=== PATIENT | female | born 1950 | race Caucasian/White ===

== ENCOUNTER 2017-09-13 08:18 | Day surgery (SDC) | payer MEDICARE, BC ==
[~2017-09-13 08:18] MED LIST: LIDOCAINE HCL 1% MPF 30 SOL ONE; PROPOFOL 500 MG/50 ML EMU IV ONE
[2017-09-13 11:19] VITALS: BP 138/91; PULSE 72; RESP 18; TEMP 97.6; O2SAT 95
== END 2017-09-13 12:05 | disposition home or self-care (01) | DRG 392 ==
LOC: SURG 08:18
PROVIDERS: ATTEND Internal Medicine Gastroenterology
DX: K21.9 Gastro-esophageal reflux disease without esophagitis (principal); K29.50 Unspecified chronic gastritis without bleeding; K44.9 Diaphragmatic hernia without obstruction or gangrene; R68.81 Early satiety; R14.2 Eructation; R11.10 Vomiting, unspecified; L53.8 Other specified erythematous conditions
CPT/HCPCS: J2001; J2704